=== PATIENT | female | born 1955 | race African-American/Black ===

== ENCOUNTER 2017-01-16 14:00 | Emergency (ER) | payer OTHER ==
[~2017-01-16 14:00] MED LIST: AMARYL4 MG PO; ATENOLOL25 MG PO; CATAPRES 0.2MG0.2 MG TOP; NEURONTIN300 MG PO; NEURONTIN400 MG PO; NORVASC5 MG PO; PYRIDIUM100 MG PO; VENTOLIN HFA IN18 GM INH; ZESTRIL40 MG PO
[2017-01-16 16:06] LABS: BASOPHIL 0.3 % (0-2); EOSINOPHIL 2.3 % (0-5); HCT 35.4 % (37.0-47.0); HGB 11.5 g/dl (12.5-16.0); LYMPHOCYTE 43.6 % (15-48); MCH 32.1 pg (25.0-31.0); MCHC 32.5 g/dL (32.0-36.0); MCV 98.9 fL (78.0-100.0); MONOCYTE 7.6 % (0-12); MPV 8.5 fL (6.0-9.5); NEUTROPHIL 46.2 % (41-80); PLT 278 K/uL (150-400); RBC 3.58 M/uL (4.20-5.40); RDW 13.9 % (11.5-14.0); WBC 6.2 K/uL (4.0-10.5)
[2017-01-16 16:30] LABS: ALBUMIN 4.2 g/dL (3.4-4.8); BILIRUBIN - TOTAL 0.3 mg/dL (0.1-1.0); CREATININE 0.5 mg/dL (0.5-1.0); GLOBULIN (CALCULATION) 2.4 g/dL (2.2-4.2); POTASSIUM 3.5 mmol/L (3.5-5.1); TOTAL PROTEIN 6.6 g/dL (6.4-8.3)
== END 2017-01-16 19:20 | disposition home or self-care (01) ==
LOC: FER 14:00
PROVIDERS: Emergency Medicine
DX: I10 Essential (primary) hypertension (principal); Z88.6 Allergy status to analgesic agent; Z88.8 Allergy status to other drugs, medicaments and biological substances; Z79.899 Other long term (current) drug therapy; Z86.73 Personal history of transient ischemic attack (TIA), and cerebral infarction without residual deficits
CPT/HCPCS: 36415; 71010; 80053; 84484; 85025; 93005

== ENCOUNTER 2017-04-07 13:12 | Emergency (ER) | payer OTHER ==
[2017-04-07 13:58] LABS: BILIRUBIN 1+ mg/dL (NEGATIVE); BLOOD NEGATIVE Ery/uL (NEGATIVE); CLARITY CLEAR (CLEAR); COLOR YELLOW (YELLOW); GLUCOSE (U) NORMAL (NORMAL); KETONE (U) TRACE mg/dL (NEGATIVE); LEUKOCYTES NEGATIVE Leu/uL (NEGATIVE); NITRITE NEGATIVE (NEGATIVE); PROTEIN TRACE (LOW) mg/dL (NEGATIVE); SPECIFIC GRAVITY 1.025 (1.001-1.030); pH 5.5 (5.0-9.0)
[2017-04-07 14:09] LABS: AMPHETAMINES NEGATIVE (NEGATIVE); BARBITURATES NEGATIVE (NEGATIVE); BENZODIAZEPINES POSITIVE (NEGATIVE); COCAINE POSITIVE (NEGATIVE); MARIJUANA (THC) POSITIVE (NEGATIVE); METHADONE NEGATIVE (NEGATIVE); TRICYCLIC ANTIDEPRESSANT NEGATIVE (NEGATIVE)
[2017-04-07 14:11] LABS: BASOPHIL 0.3 % (0-2); EOSINOPHIL 2.5 % (0-5); HCT 35.7 % (37.0-47.0); HGB 11.9 g/dl (12.5-16.0); LYMPHOCYTE 49.9 % (15-48); MCH 32.3 pg (25.0-31.0); MCHC 33.3 g/dL (32.0-36.0); MONOCYTE 7.2 % (0-12); MPV 9.1 fL (6.0-9.5); NEUTROPHIL 40.1 % (41-80); PLT 232 K/uL (150-400); RBC 3.68 M/uL (4.20-5.40); RDW 13.9 % (11.5-14.0); WBC 6.8 K/uL (4.0-10.5)
[2017-04-07 14:27] LABS: ALBUMIN 3.9 g/dL (3.4-4.8); BILIRUBIN - TOTAL 0.4 mg/dL (0.1-1.0); CREATININE 0.7 mg/dL (0.5-1.0); GLOBULIN (CALCULATION) 2.9 g/dL (2.2-4.2); POTASSIUM 3.8 mmol/L (3.5-5.1); TOTAL PROTEIN 6.8 g/dL (6.4-8.3)
== END 2017-04-07 14:54 | disposition home or self-care (01) ==
LOC: FER 13:12
PROVIDERS: Nurse Practitioner
DX: R10.9 Unspecified abdominal pain (principal); G89.29 Other chronic pain; M54.9 Dorsalgia, unspecified; R11.0 Nausea; I10 Essential (primary) hypertension; J44.9 Chronic obstructive pulmonary disease, unspecified; Z87.19 Personal history of other diseases of the digestive system; Z88.5 Allergy status to narcotic agent; Z88.6 Allergy status to analgesic agent; Z88.8 Allergy status to other drugs, medicaments and biological substances; Z79.84 Long term (current) use of oral hypoglycemic drugs; Z79.51 Long term (current) use of inhaled steroids; Z79.899 Other long term (current) drug therapy; Z90.49 Acquired absence of other specified parts of digestive tract
CPT/HCPCS: 36415; 80053; 80305; 81003; 82150; 83690; 85025

== ENCOUNTER 2017-04-12 09:53 | Emergency (ER) | payer OTHER ==
[2017-04-12 10:55] LABS: BILIRUBIN NEGATIVE (NEGATIVE); BLOOD NEGATIVE Ery/uL (NEGATIVE); CLARITY CLEAR (CLEAR); COLOR YELLOW (YELLOW); GLUCOSE (U) NORMAL (NORMAL); KETONE (U) NEGATIVE (NEGATIVE); LEUKOCYTES NEGATIVE Leu/uL (NEGATIVE); NITRITE NEGATIVE (NEGATIVE); PROTEIN NEGATIVE (NEGATIVE); SPECIFIC GRAVITY <=1.005 (1.001-1.030); UROBILINOGEN 0.2 mg/dL (0.2-1.0); pH 5.5 (5.0-9.0)
[2017-04-12 11:18] LABS: AMPHETAMINES NEGATIVE (NEGATIVE); BARBITURATES NEGATIVE (NEGATIVE); BENZODIAZEPINES NEGATIVE (NEGATIVE); COCAINE NEGATIVE (NEGATIVE); MARIJUANA (THC) NEGATIVE (NEGATIVE); METHADONE NEGATIVE (NEGATIVE); TRICYCLIC ANTIDEPRESSANT NEGATIVE (NEGATIVE)
== END 2017-04-12 11:29 | disposition home or self-care (01) ==
LOC: FER 09:53
PROVIDERS: Emergency Medicine
DX: R07.89 Other chest pain (principal); G89.29 Other chronic pain; M54.5 Low back pain; R11.0 Nausea; I45.81 Long QT syndrome; E11.9 Type 2 diabetes mellitus without complications; I10 Essential (primary) hypertension; Z88.5 Allergy status to narcotic agent; Z88.6 Allergy status to analgesic agent; Z88.8 Allergy status to other drugs, medicaments and biological substances
CPT/HCPCS: 80305; 81003; 93005

== ENCOUNTER 2017-04-24 15:52 | Emergency (ER) | payer OTHER ==
[2017-04-24 18:11] LABS: BILIRUBIN NEGATIVE (NEGATIVE); BLOOD NEGATIVE Ery/uL (NEGATIVE); CLARITY CLEAR (CLEAR); COLOR YELLOW (YELLOW); GLUCOSE (U) NORMAL (NORMAL); KETONE (U) NEGATIVE (NEGATIVE); LEUKOCYTES NEGATIVE Leu/uL (NEGATIVE); NITRITE NEGATIVE (NEGATIVE); PROTEIN NEGATIVE (NEGATIVE); SPECIFIC GRAVITY 1.025 (1.001-1.030); UROBILINOGEN 0.2 mg/dL (0.2-1.0); pH 5.5 (5.0-9.0)
[2017-04-24 19:27] LABS: BASOPHIL 0.1 % (0-2); EOSINOPHIL 1.8 % (0-5); HCT 34.6 % (37.0-47.0); HGB 11.6 g/dl (12.5-16.0); LYMPHOCYTE 51.8 % (15-48); MCH 32.5 pg (25.0-31.0); MCHC 33.5 g/dL (32.0-36.0); MCV 96.9 fL (78.0-100.0); MONOCYTE 7.2 % (0-12); MPV 8.9 fL (6.0-9.5); NEUTROPHIL 39.1 % (41-80); PLT 237 K/uL (150-400); RBC 3.57 M/uL (4.20-5.40); RDW 13.6 % (11.5-14.0); WBC 6.8 K/uL (4.0-10.5)
[2017-04-24 19:37] LABS: ALBUMIN 3.7 g/dL (3.4-4.8); BILIRUBIN - TOTAL 0.2 mg/dL (0.1-1.0); CREATININE 0.5 mg/dL (0.5-1.0); GLOBULIN (CALCULATION) 2.9 g/dL (2.2-4.2); POTASSIUM 3.5 mmol/L (3.5-5.1); TOTAL PROTEIN 6.6 g/dL (6.4-8.3)
[2017-04-24 20:36] LABS: BACTERIA 1+
== END 2017-04-24 20:52 | disposition home or self-care (01) ==
LOC: FER 15:52
PROVIDERS: Nurse Practitioner Family
DX: R30.0 Dysuria (principal); I12.9 Hypertensive chronic kidney disease with stage 1 through stage 4 chronic kidney disease, or unspecified chronic kidney disease; E11.22 Type 2 diabetes mellitus with diabetic chronic kidney disease; N18.9 Chronic kidney disease, unspecified; Z88.5 Allergy status to narcotic agent; Z88.6 Allergy status to analgesic agent; Z88.8 Allergy status to other drugs, medicaments and biological substances
CPT/HCPCS: 36415; 80053; 81001; 85025; J2765

== ENCOUNTER 2017-07-28 14:00 | Emergency (ER) | payer OTHER ==
[2017-07-28 14:55] LABS: BASOPHIL 0.1 % (0-2); EOSINOPHIL 0.5 % (0-7); HCT 35.8 % (37.0-47.0); HGB 11.8 g/dl (12.5-16.0); LYMPHOCYTE 51.4 % (15-48); MCH 33.1 pg (25.0-31.0); MCV 100.6 fL (78.0-100.0); MONOCYTE 7.6 % (0-12); MPV 9.2 fL (6.0-9.5); NEUTROPHIL 40.4 % (41-80); PLT 224 K/uL (150-400); RBC 3.56 M/uL (4.20-5.40); RDW 13.5 % (11.5-14.0); WBC 9.2 K/uL (4.0-10.5)
[2017-07-28 15:17] LABS: ALBUMIN 3.5 g/dL (3.4-4.8); BILIRUBIN - TOTAL 0.3 mg/dL (0.1-1.0); CREATININE 0.5 mg/dL (0.5-1.0); GLOBULIN (CALCULATION) 3.1 g/dL (2.2-4.2); POTASSIUM 3.1 mmol/L (3.5-5.1); TOTAL PROTEIN 6.6 g/dL (6.4-8.3)
[2017-07-28 16:38] LABS: BILIRUBIN NEGATIVE (NEGATIVE); BLOOD NEGATIVE Ery/uL (NEGATIVE); CLARITY CLEAR (CLEAR); COLOR YELLOW (YELLOW); GLUCOSE (U) 1+ mg/dL (NORMAL); KETONE (U) NEGATIVE (NEGATIVE); LEUKOCYTES NEGATIVE Leu/uL (NEGATIVE); NITRITE NEGATIVE (NEGATIVE); PROTEIN NEGATIVE (NEGATIVE)
== END 2017-07-28 17:19 | disposition home or self-care (01) ==
LOC: FER 14:00
PROVIDERS: Internal Medicine; Nurse Practitioner
DX: R10.9 Unspecified abdominal pain (principal); R10.817 Generalized abdominal tenderness; G89.29 Other chronic pain; E87.6 Hypokalemia; E11.9 Type 2 diabetes mellitus without complications; I10 Essential (primary) hypertension; Z79.899 Other long term (current) drug therapy
CPT/HCPCS: 36415; 80053; 81003; 83690; 85025; 93005

== ENCOUNTER 2020-12-11 12:15 | Emergency (ER) | payer SELFPAY ==
[~2020-12-11 12:15] MED LIST changes: +ASPIRIN PO; +ATARAX25 MG PO; +BENTYL10 MG PO; +CALCIUM ANTACI200 MG PO; +CATAPRES-T0.1 MG/24 TOP; +CHILDREN'S ASPI81 MG PO; +CIPRO500 MG PO; +CLONIDINE1 EACH TD; +COLACE100 MG PO; +COREG 3.125M3.125 MG PO; +COREG 6.25MG6.25 MG PO; +FEOSOL325 MG PO; +FUROSEMIDE 40MG40 MG PO; +JANUVIA25 MG PO; +K-DUR20 MEQ PO; +KEFLEX250 MG PO; +LEXAPRO20 MG PO; +LIDOCAINE 5% P1 EACH TOP; +MAG-OXIDE 400M400 MG PO; +MICON-GUARD 2% TOP; +NORCO 5-325 TA1 EACH PO; +PERCOCET 10-321 EACH PO; +PERCOCET 5-3251 EACH PO; +PHENERGAN12.5 M1 PO; +PHENERGAN25 M1 PO; +POTASSIUM CHLO10 ME1 PO; +POTASSIUM CHLO20 ME1 PO; +PROMETHEGA12.5 MG/SU PR; +PYRIDIUM200 MG PO; +QUETIAPINE FUMA50 MG PO; +REGLAN10 MG PO; +REMOVE; +REMOVE EXT; +VOLTAREN **OUT75 MG PO; +WELLBUTRIN XL150 MG PO
[2020-12-11 13:12] LABS: BILIRUBIN NEGATIVE (NEGATIVE); BLOOD NEGATIVE Ery/uL (NEGATIVE); CLARITY CLEAR (CLEAR); COLOR YELLOW (YELLOW); GLUCOSE (U) NORMAL (NORMAL); LEUKOCYTES NEGATIVE Leu/uL (NEGATIVE); NITRITE NEGATIVE (NEGATIVE); PROTEIN NEGATIVE (NEGATIVE); SPECIFIC GRAVITY >=1.030 (1.001-1.030); UROBILINOGEN 0.2 mg/dL (0.2-1.0)
[2020-12-11 13:44] LABS: BASOPHIL 0.4 % (0-2); EOSINOPHIL 3.6 % (0-7); HCT 32.2 % (37.0-47.0); HGB 10.2 g/dl (12.5-16.0); LYMPHOCYTE 55.5 % (15-48); MCH 33.6 pg (25.0-31.0); MCHC 31.7 g/dL (32.0-36.0); MCV 105.9 fL (78.0-100.0); MONOCYTE 7.5 % (0-12); NEUTROPHIL 32.8 % (41-80); NRBC 0; PLT 217 K/uL (150-400); RBC 3.04 M/uL (4.20-5.40); RDW 13.6 % (11.5-14.0); WBC 5.6 K/uL (4.0-10.5)
[2020-12-11 14:01] LABS: ALBUMIN 3.1 g/dL (3.4-5.0); BILIRUBIN - TOTAL 0.3 mg/dL (0.2-1.0); BUN/CREAT RATIO (CALC) 21.4 RATIO; CREATININE 0.42 mg/dL (0.51-0.95); GLOBULIN (CALCULATION) 3.7 g/dL; POTASSIUM 3.4 mmol/L (3.5-5.1); TOTAL PROTEIN 6.8 g/dL (6.4-8.2)
== END 2020-12-11 15:04 | disposition home or self-care (01) ==
LOC: FER 12:15
PROVIDERS: Emergency Medicine
DX: K29.70 Gastritis, unspecified, without bleeding (principal); M54.5 Low back pain; R91.8 Other nonspecific abnormal finding of lung field; E11.9 Type 2 diabetes mellitus without complications; J44.9 Chronic obstructive pulmonary disease, unspecified; Z90.49 Acquired absence of other specified parts of digestive tract; Z88.5 Allergy status to narcotic agent; Z88.6 Allergy status to analgesic agent; Z88.8 Allergy status to other drugs, medicaments and biological substances; Z87.19 Personal history of other diseases of the digestive system; Z86.73 Personal history of transient ischemic attack (TIA), and cerebral infarction without residual deficits
CPT/HCPCS: 36415; 74022; 80053; 81003; 83690; 85025; 96372; J1642; J2550

== ENCOUNTER 2020-12-20 16:47 | Emergency (ER) | payer OTHER ==
[2020-12-20 19:15] LABS: BILIRUBIN NEGATIVE (NEGATIVE); BLOOD NEGATIVE Ery/uL (NEGATIVE); CLARITY CLEAR (CLEAR); COLOR YELLOW (YELLOW); GLUCOSE (U) NORMAL (NORMAL); LEUKOCYTES NEGATIVE Leu/uL (NEGATIVE); NITRITE NEGATIVE (NEGATIVE); PROTEIN NEGATIVE (NEGATIVE); UROBILINOGEN 0.2 mg/dL (0.2-1.0); pH 5.5 (5.0-9.0)
[2020-12-20 19:30] LABS: BASOPHIL 0.5 % (0-2); EOSINOPHIL 2.3 % (0-7); HCT 34.1 % (37.0-47.0); HGB 11.2 g/dl (12.5-16.0); LYMPHOCYTE 56.9 % (15-48); MCH 33.8 pg (25.0-31.0); MCHC 32.8 g/dL (32.0-36.0); MONOCYTE 6.1 % (0-12); MPV 9.2 fL (6.0-9.5); NEUTROPHIL 33.9 % (41-80); NRBC 0; PLT 250 K/uL (150-400); RBC 3.31 M/uL (4.20-5.40); RDW 12.7 % (11.5-14.0); WBC 6.2 K/uL (4.0-10.5)
[2020-12-20 19:52] LABS: ALBUMIN 3.3 g/dL (3.4-5.0); BILIRUBIN - TOTAL 0.4 mg/dL (0.2-1.0); BUN/CREAT RATIO (CALC) 22.4 RATIO; CREATININE 0.49 mg/dL (0.51-0.95); GLOBULIN (CALCULATION) 4.1 g/dL; POTASSIUM 3.2 mmol/L (3.5-5.1); TOTAL PROTEIN 7.4 g/dL (6.4-8.2)
[2020-12-20 19:56] LABS: LACTIC ACID 0.7 mmol/L (0.4-1.9)
[2020-12-20] MEDS ORDERED: CARAFATE1 GM PO (20:47)
== END 2020-12-20 21:04 | disposition home or self-care (01) ==
LOC: FER 16:47
PROVIDERS: Emergency Medicine
DX: R10.84 Generalized abdominal pain (principal); R11.2 Nausea with vomiting, unspecified; R19.7 Diarrhea, unspecified; M54.9 Dorsalgia, unspecified; I10 Essential (primary) hypertension; J44.9 Chronic obstructive pulmonary disease, unspecified; Z98.890 Other specified postprocedural states; Z88.5 Allergy status to narcotic agent; Z88.6 Allergy status to analgesic agent; Z88.8 Allergy status to other drugs, medicaments and biological substances
CPT/HCPCS: 36415; 74022; 80053; 81003; 83605; 83690; 84145; 85025; J1170; J2550

== ENCOUNTER 2020-12-27 15:47 | Emergency (ER) | payer OTHER ==
[~2020-12-27 15:47] MED LIST changes: +CARAFATE1 GM PO
[2020-12-27 16:38] LABS: BASOPHIL 0.3 % (0-2); EOSINOPHIL 1.3 % (0-7); HCT 35.2 % (37.0-47.0); HGB 11.7 g/dl (12.5-16.0); LYMPHOCYTE 53.6 % (15-48); MCH 34.1 pg (25.0-31.0); MCHC 33.2 g/dL (32.0-36.0); MCV 102.6 fL (78.0-100.0); MONOCYTE 5.4 % (0-12); MPV 8.9 fL (6.0-9.5); NEUTROPHIL 39.4 % (41-80); NRBC 0; PLT 247 K/uL (150-400); RBC 3.43 M/uL (4.20-5.40); WBC 6.3 K/uL (4.0-10.5)
[2020-12-27 16:55] LABS: CREATININE 0.5 mg/dL (0.51-0.95); POTASSIUM 2.9 mmol/L (3.5-5.1)
== END 2020-12-27 18:43 | disposition home or self-care (01) ==
LOC: FER 15:47
PROVIDERS: Nurse Practitioner Family
DX: R07.89 Other chest pain (principal); E87.6 Hypokalemia; I10 Essential (primary) hypertension; E11.9 Type 2 diabetes mellitus without complications; I25.10 Atherosclerotic heart disease of native coronary artery without angina pectoris; Z90.49 Acquired absence of other specified parts of digestive tract; Z88.5 Allergy status to narcotic agent; Z88.6 Allergy status to analgesic agent
CPT/HCPCS: 36415; 80048; 84484; 85025; 93005; J1642

== ENCOUNTER 2021-01-07 17:27 | Emergency (ER) | payer OTHER ==
[2021-01-07 20:32] LABS: BILIRUBIN NEGATIVE (NEGATIVE); BLOOD NEGATIVE Ery/uL (NEGATIVE); CLARITY HAZY (CLEAR); COLOR YELLOW (YELLOW); GLUCOSE (U) NORMAL (NORMAL); LEUKOCYTES 1+ Leu/uL (NEGATIVE); NITRITE NEGATIVE (NEGATIVE); PROTEIN NEGATIVE (NEGATIVE); SPECIFIC GRAVITY >=1.030 (1.001-1.030); UROBILINOGEN 0.2 mg/dL (0.2-1.0); pH 5.5 (5.0-9.0)
[2021-01-07 20:39] LABS: BACTERIA TRACE; CALCIUM OXALATE CRYSTALS TRACE; URINARY RBC RARE
[2021-01-07 21:16] LABS: BASOPHIL 0.5 % (0-2); EOSINOPHIL 1.8 % (0-7); HCT 32.5 % (37.0-47.0); HGB 10.5 g/dl (12.5-16.0); MCHC 32.3 g/dL (32.0-36.0); MCV 105.2 fL (78.0-100.0); MONOCYTE 8.6 % (0-12); MPV 8.9 fL (6.0-9.5); NEUTROPHIL 44.9 % (41-80); NRBC 0; PLT 205 K/uL (150-400); RBC 3.09 M/uL (4.20-5.40); RDW 13.1 % (11.5-14.0); WBC 6.5 K/uL (4.0-10.5)
[2021-01-07 21:44] LABS: ALBUMIN 3.3 g/dL (3.4-5.0); BILIRUBIN - TOTAL 0.4 mg/dL (0.2-1.0); BUN/CREAT RATIO (CALC) 25.7 RATIO; CREATININE 0.74 mg/dL (0.51-0.95); GLOBULIN (CALCULATION) 3.2 g/dL; POTASSIUM 3.4 mmol/L (3.5-5.1); TOTAL PROTEIN 6.5 g/dL (6.4-8.2)
[2021-01-07] MEDS ORDERED: MACROBID100 MG PO (22:01)
[2021-01-07] MEDS ORDERED: CYCLOBENZAPRINE10 MG PO (22:01)
== END 2021-01-07 22:31 | disposition home or self-care (01) ==
LOC: FER 17:27
PROVIDERS: Physician Assistant
DX: N39.0 Urinary tract infection, site not specified (principal); G89.29 Other chronic pain; D64.9 Anemia, unspecified; E11.9 Type 2 diabetes mellitus without complications; I25.10 Atherosclerotic heart disease of native coronary artery without angina pectoris; I10 Essential (primary) hypertension; Z90.49 Acquired absence of other specified parts of digestive tract; Z98.890 Other specified postprocedural states; Z88.6 Allergy status to analgesic agent; Z88.8 Allergy status to other drugs, medicaments and biological substances; Z88.5 Allergy status to narcotic agent
CPT/HCPCS: 36415; 72110; 80053; 81001; 85025; J1170; J1642

== ENCOUNTER 2021-01-20 15:02 | Emergency (ER) | payer OTHER ==
[~2021-01-20 15:02] MED LIST changes: +CYCLOBENZAPRINE10 MG PO; +MACROBID100 MG PO
[2021-01-20 16:38] LABS: BASOPHIL 0.5 % (0-2); EOSINOPHIL 2.7 % (0-7); HCT 32.6 % (37.0-47.0); HGB 10.7 g/dl (12.5-16.0); LYMPHOCYTE 45.5 % (15-48); MCH 33.8 pg (25.0-31.0); MCHC 32.8 g/dL (32.0-36.0); MCV 102.8 fL (78.0-100.0); MONOCYTE 6.8 % (0-12); MPV 9.2 fL (6.0-9.5); NEUTROPHIL 44.2 % (41-80); NRBC 0; PLT 224 K/uL (150-400); RBC 3.17 M/uL (4.20-5.40); RDW 12.5 % (11.5-14.0); WBC 6.3 K/uL (4.0-10.5)
[2021-01-20 17:01] LABS: ALBUMIN 3.1 g/dL (3.4-5.0); BILIRUBIN - TOTAL 0.3 mg/dL (0.2-1.0); BUN/CREAT RATIO (CALC) 29.6 RATIO; CREATININE 0.54 mg/dL (0.51-0.95); GLOBULIN (CALCULATION) 3.6 g/dL; POTASSIUM 3.1 mmol/L (3.5-5.1); TOTAL PROTEIN 6.7 g/dL (6.4-8.2)
[2021-01-20 17:50] LABS: BILIRUBIN NEGATIVE (NEGATIVE); BLOOD NEGATIVE Ery/uL (NEGATIVE); CLARITY CLEAR (CLEAR); COLOR YELLOW (YELLOW); GLUCOSE (U) NORMAL (NORMAL); LEUKOCYTES NEGATIVE Leu/uL (NEGATIVE); NITRITE NEGATIVE (NEGATIVE); PROTEIN NEGATIVE (NEGATIVE); UROBILINOGEN 0.2 mg/dL (0.2-1.0)
[2021-01-20] MEDS ORDERED: PHENERGAN25 M1 PO (17:58)
== END 2021-01-20 18:37 | disposition home or self-care (01) ==
LOC: FER 15:02
PROVIDERS: Emergency Medicine
DX: R10.31 Right lower quadrant pain (principal); R10.32 Left lower quadrant pain; G89.29 Other chronic pain; R19.7 Diarrhea, unspecified; R11.2 Nausea with vomiting, unspecified; E11.9 Type 2 diabetes mellitus without complications; I10 Essential (primary) hypertension; J44.9 Chronic obstructive pulmonary disease, unspecified; Z87.19 Personal history of other diseases of the digestive system; Z88.5 Allergy status to narcotic agent; Z88.6 Allergy status to analgesic agent; Z88.8 Allergy status to other drugs, medicaments and biological substances; Z79.84 Long term (current) use of oral hypoglycemic drugs; Z79.899 Other long term (current) drug therapy
CPT/HCPCS: 36415; 80053; 81003; 82150; 83690; 85025; J1170; J1642; J2270; J2550; J7030

== ENCOUNTER 2021-01-23 17:20 | Emergency (ER) | payer OTHER ==
[2021-01-23 18:23] LABS: BASOPHIL 0.3 % (0-2); HCT 32.8 % (37.0-47.0); HGB 10.9 g/dl (12.5-16.0); LYMPHOCYTE 46.3 % (15-48); MCH 33.4 pg (25.0-31.0); MCHC 33.2 g/dL (32.0-36.0); MCV 100.6 fL (78.0-100.0); MPV 8.7 fL (6.0-9.5); NEUTROPHIL 44.4 % (41-80); NRBC 0; PLT 231 K/uL (150-400); RBC 3.26 M/uL (4.20-5.40); RDW 12.3 % (11.5-14.0); WBC 6.1 K/uL (4.0-10.5)
[2021-01-23 18:39] LABS: BILIRUBIN - TOTAL 0.3 mg/dL (0.2-1.0); BUN/CREAT RATIO (CALC) 30.2 RATIO; CREATININE 0.43 mg/dL (0.51-0.95); POTASSIUM 2.9 mmol/L (3.5-5.1)
[2021-01-23 18:52] LABS: LACTIC ACID 0.8 mmol/L (0.4-1.9)
[2021-01-23 19:02] LABS: BILIRUBIN NEGATIVE (NEGATIVE); BLOOD 1+ Ery/uL (NEGATIVE); COLOR YELLOW (YELLOW); GLUCOSE (U) NORMAL (NORMAL); LEUKOCYTES 3+ Leu/uL (NEGATIVE); NITRITE NEGATIVE (NEGATIVE); PROTEIN NEGATIVE (NEGATIVE); UROBILINOGEN 0.2 mg/dL (0.2-1.0); pH 6.5 (5.0-9.0)
[2021-01-23 19:04] LABS: CLARITY CLOUDY (CLEAR)
[2021-01-23 19:08] LABS: BACTERIA 4+; URINARY WBC TNTC
[2021-01-23] MEDS ORDERED: K-DUR20 MEQ PO (21:25)
[2021-01-23] MEDS ORDERED: PROMETHEGA12.5 MG/SU PR (21:25)
[2021-01-23] MEDS ORDERED: CIPRO500 MG PO (21:25)
== END 2021-01-23 21:55 | disposition home or self-care (01) ==
LOC: FER 17:20
PROVIDERS: Nurse Practitioner Family
DX: N39.0 Urinary tract infection, site not specified (principal); E87.6 Hypokalemia; R19.7 Diarrhea, unspecified; E11.9 Type 2 diabetes mellitus without complications; I10 Essential (primary) hypertension; Z87.19 Personal history of other diseases of the digestive system; Z86.73 Personal history of transient ischemic attack (TIA), and cerebral infarction without residual deficits; Z90.49 Acquired absence of other specified parts of digestive tract; Z90.710 Acquired absence of both cervix and uterus; Z98.890 Other specified postprocedural states; Z88.5 Allergy status to narcotic agent; Z88.6 Allergy status to analgesic agent; Z88.8 Allergy status to other drugs, medicaments and biological substances
CPT/HCPCS: 36415; 80053; 81001; 82150; 83605; 83690; 85025; 87076; 87088; 87186; J0696; J1170; J1642; J2550; J3480; J7030; Q9967

== ENCOUNTER 2021-01-27 14:10 | Inpatient (IN) | payer MEDICARE, OTHER ==
[~2021-01-27] VITALS: Ht 154.9 cm; Wt 72.2 kg
[2021-01-27 16:14] LABS: BASOPHIL 0.3 % (0-2); EOSINOPHIL 1.7 % (0-7); HCT 35.9 % (37.0-47.0); HGB 11.1 g/dl (12.5-16.0); LYMPHOCYTE 50.4 % (15-48); MCH 32.8 pg (25.0-31.0); MCHC 30.9 g/dL (32.0-36.0); MCV 106.2 fL (78.0-100.0); MONOCYTE 8.3 % (0-12); MPV 9.5 fL (6.0-9.5); NEUTROPHIL 39.3 % (41-80); NRBC 0; PLT 217 K/uL (150-400); RBC 3.38 M/uL (4.20-5.40); RDW 12.8 % (11.5-14.0)
[2021-01-27 17:14] LABS: BILIRUBIN NEGATIVE (NEGATIVE); BLOOD NEGATIVE Ery/uL (NEGATIVE); CLARITY CLEAR (CLEAR); COLOR YELLOW (YELLOW); GLUCOSE (U) NORMAL (NORMAL); LEUKOCYTES NEGATIVE Leu/uL (NEGATIVE); NITRITE NEGATIVE (NEGATIVE); PROTEIN NEGATIVE (NEGATIVE); SPECIFIC GRAVITY 1.015 (1.001-1.030); UROBILINOGEN 0.2 mg/dL (0.2-1.0)
[2021-01-27 18:14] LABS: BILIRUBIN - TOTAL 0.4 mg/dL (0.2-1.0); BUN/CREAT RATIO (CALC) 28.9 RATIO; CREATININE 0.38 mg/dL (0.51-0.95); POTASSIUM 2.8 mmol/L (3.5-5.1)
[2021-01-27 18:45] LABS: MAGNESIUM 1.1 mg/dL (1.8-2.4); PHOSPHORUS 2.9 mg/dL (2.6-4.7)
[2021-01-27] MEDS ORDERED: VENTOLIN HFA IN18 GM INH (22:04)
[2021-01-27] MEDS ORDERED: NORVASC5 MG PO (22:04)
[2021-01-27] MEDS ORDERED: CATAPRES-TTS 21 EACH ID (22:08)
[2021-01-27] MEDS ORDERED: FLEXERIL5 MG PO (22:09)
[2021-01-27] MEDS ORDERED: FEOSOL325 MG PO (22:10)
[2021-01-27] MEDS ORDERED: LEXAPRO20 MG PO (22:10)
[2021-01-27] MEDS ORDERED: GABAPENTIN300 MG PO (22:11)
[2021-01-27] MEDS ORDERED: ATARAX25 MG PO ×3 (22:12→22:18)
[2021-01-27] MEDS ORDERED: SEROQUEL 25MG T25 MG PO (22:13)
[2021-01-27] MEDS ORDERED: K-DUR20 MEQ PO (22:14)
[2021-01-27] MEDS ORDERED: KEPPRA1000 MG PO (22:15)
[2021-01-27] MEDS ORDERED: NEURONTIN300 MG PO (22:17)
[2021-01-28 06:12] LABS: BASOPHIL 0.4 % (0-2); EOSINOPHIL 2.3 % (0-7); HCT 31.9 % (37.0-47.0); LYMPHOCYTE 45.3 % (15-48); MCH 33.4 pg (25.0-31.0); MCHC 31.3 g/dL (32.0-36.0); MCV 106.7 fL (78.0-100.0); MONOCYTE 6.8 % (0-12); MPV 9.2 fL (6.0-9.5); NEUTROPHIL 45.1 % (41-80); NRBC 0; PLT 220 K/uL (150-400); RBC 2.99 M/uL (4.20-5.40); RDW 12.8 % (11.5-14.0); WBC 7.5 K/uL (4.0-10.5)
[2021-01-28 06:30] LABS: BUN/CREAT RATIO (CALC) 20.8 RATIO; CREATININE 0.53 mg/dL (0.51-0.95); POTASSIUM 3.9 mmol/L (3.5-5.1)
[2021-01-28 06:31] LABS: MAGNESIUM 1.9 mg/dL (1.8-2.4)
--- NOTE | 2021-01-28 15:17 | NUR ---
MET WITH PT. SHE STATE THAT SHE RESIDES WITH HER SON, TRISHA. DURING THE TIME HER SON IS NOT HOME HER OTHER SON, CAITLIN, STAYS WITH HER. SHE STATES THAT HER SONS PROVIDE MEALS FOR HER. THEY TAKE HER TO THE DOCTOR AND RUN ERRANDS FOR HER. PT. STATES THAT HER JANUARY 01 OR . SHE STATES THAT SHE IS DOING "SO SO". SHE STATES THAT SHE HAS A GOOD FRIEND, MAX THAT SHE TALKS WITH AND SHE FEELS SUPPORTED BY THIS. SHE STATES THAT HER SONS HELP HER AND TAKE GOOD CARE OF HER. I ASKED HER IF SHE WANTED HH AND SHE STATED THAT SHE DID. SHE REQUESTED [facility]. I EXPLAINED THE AFFLIATION AND SHE ACKNOLEDGED THAT SHE UNDERSTOOD. SHE SIGNED THE CHOICE FORM FOR [facility]. REFERRAL FOR [facility] SENT THROUGH [facility].
--- NOTE | 2021-01-28 17:08 | NUR ---
PLEASE CALL [facility] UPON DISCHARGE. THANKS,
[2021-01-29 06:52] LABS: BASOPHIL 0.3 % (0-2); EOSINOPHIL 2.6 % (0-7); HGB 9.6 g/dl (12.5-16.0); LYMPHOCYTE 41.2 % (15-48); MCH 33.4 pg (25.0-31.0); MCV 104.5 fL (78.0-100.0); MONOCYTE 6.4 % (0-12); MPV 9.4 fL (6.0-9.5); NEUTROPHIL 49.3 % (41-80); NRBC 0; PLT 207 K/uL (150-400); RBC 2.87 M/uL (4.20-5.40); RDW 12.4 % (11.5-14.0); WBC 6.1 K/uL (4.0-10.5)
[2021-01-29 07:03] LABS: ALBUMIN 2.5 g/dL (3.4-5.0); BILIRUBIN - TOTAL 0.4 mg/dL (0.2-1.0); BUN/CREAT RATIO (CALC) 20.9 RATIO; CREATININE 0.43 mg/dL (0.51-0.95); GLOBULIN (CALCULATION) 3.4 g/dL; POTASSIUM 3.8 mmol/L (3.5-5.1); TOTAL PROTEIN 5.9 g/dL (6.4-8.2)
[2021-01-29 14:11] LABS: RETICULOCYTE COUNT 1.5 % (1.0-2.0)
[2021-01-29 14:20] LABS: IRON % SATURATION 29.5 %SAT (20-50)
[2021-01-29 15:03] LABS: FOLIC ACID (SERUM) 26.9 ng/mL (8.6-58.9)
[2021-01-30 06:18] LABS: BASOPHIL 0.2 % (0-2); EOSINOPHIL 3.3 % (0-7); HCT 27.2 % (37.0-47.0); HGB 8.8 g/dl (12.5-16.0); LYMPHOCYTE 39.4 % (15-48); MCH 33.2 pg (25.0-31.0); MCHC 32.4 g/dL (32.0-36.0); MCV 102.6 fL (78.0-100.0); MONOCYTE 7.6 % (0-12); MPV 9.1 fL (6.0-9.5); NEUTROPHIL 49.3 % (41-80); NRBC 0; PLT 208 K/uL (150-400); RBC 2.65 M/uL (4.20-5.40); RDW 12.4 % (11.5-14.0); WBC 5.8 K/uL (4.0-10.5)
[2021-01-30 06:47] LABS: BUN/CREAT RATIO (CALC) 13.3 RATIO; CREATININE 0.45 mg/dL (0.51-0.95); POTASSIUM 3.7 mmol/L (3.5-5.1)
[2021-01-30] MEDS ORDERED: PHENERGAN12.5 M1 PO (12:47)
[2021-01-30] MEDS ORDERED: OXY-IR 5MG5 MG PO (12:47)
[2021-01-30] MEDS ORDERED: PROMETHEGA12.5 MG/SU PR (12:58)
== END 2021-01-30 16:24 | disposition home health service (06) | DRG 439 ==
LOC: FER 14:10 → FMS 20:14
PROVIDERS: Emergency Medicine; Nurse Practitioner; Nurse Practitioner Family; ADMIT Internal Medicine
DX: K85.90 Acute pancreatitis without necrosis or infection, unspecified (principal); E44.1 Mild protein-calorie malnutrition; N30.00 Acute cystitis without hematuria; Z16.24 Resistance to multiple antibiotics; I82.409 Acute embolism and thrombosis of unspecified deep veins of unspecified lower extremity; E87.6 Hypokalemia; E83.42 Hypomagnesemia; E86.0 Dehydration; B96.20 Unspecified Escherichia coli [E. coli] as the cause of diseases classified elsewhere; Z20.822 Contact with and (suspected) exposure to COVID-19; E11.9 Type 2 diabetes mellitus without complications; I10 Essential (primary) hypertension; L29.9 Pruritus, unspecified; K21.9 Gastro-esophageal reflux disease without esophagitis; J44.9 Chronic obstructive pulmonary disease, unspecified; F41.1 Generalized anxiety disorder; F32.9 Major depressive disorder, single episode, unspecified; Z86.73 Personal history of transient ischemic attack (TIA), and cerebral infarction without residual deficits; Z90.710 Acquired absence of both cervix and uterus; Z90.49 Acquired absence of other specified parts of digestive tract; Z88.8 Allergy status to other drugs, medicaments and biological substances; Z98.41 Cataract extraction status, right eye; Z98.890 Other specified postprocedural states
CPT/HCPCS: 36415; 74022; 80048; 80053; 81003; 82270; 82607; 82746; 82962; 83540; 83550; 83690; 83735; 84100; 84484; 85025; 87045; 87046; 93005; J1170; J1200; J1335; J2060; J2550; J3475; J3480; J7030; J7120; U0002

== ENCOUNTER 2021-02-11 12:33 | Emergency (ER) | payer OTHER ==
[~2021-02-11 12:33] MED LIST changes: +CATAPRES-TTS 21 EACH ID; +FLEXERIL5 MG PO; +GABAPENTIN300 MG PO; +KEPPRA1000 MG PO; +OXY-IR 5MG5 MG PO; +SEROQUEL 25MG T25 MG PO
[2021-02-11 13:37] LABS: BASOPHIL 0.5 % (0-2); HCT 32.8 % (37.0-47.0); HGB 10.7 g/dl (12.5-16.0); LYMPHOCYTE 41.6 % (15-48); MCH 32.9 pg (25.0-31.0); MCHC 32.6 g/dL (32.0-36.0); MCV 100.9 fL (78.0-100.0); MONOCYTE 6.3 % (0-12); MPV 8.9 fL (6.0-9.5); NEUTROPHIL 49.4 % (41-80); NRBC 0; PLT 208 K/uL (150-400); RBC 3.25 M/uL (4.20-5.40); RDW 12.6 % (11.5-14.0); WBC 6.4 K/uL (4.0-10.5)
[2021-02-11 13:54] LABS: BUN/CREAT RATIO (CALC) 24.5 RATIO; CREATININE 0.49 mg/dL (0.51-0.95); MAGNESIUM 1.4 mg/dL (1.8-2.4); POTASSIUM 2.9 mmol/L (3.5-5.1)
[2021-02-11] MEDS ORDERED: PROMETHEGA12.5 MG/SU PR (15:54)
== END 2021-02-11 17:25 | disposition home or self-care (01) ==
LOC: FER 12:33
PROVIDERS: Nurse Practitioner Family
DX: R11.2 Nausea with vomiting, unspecified (principal); R10.9 Unspecified abdominal pain; R19.7 Diarrhea, unspecified; I10 Essential (primary) hypertension; E11.9 Type 2 diabetes mellitus without complications; Z86.73 Personal history of transient ischemic attack (TIA), and cerebral infarction without residual deficits; Z88.5 Allergy status to narcotic agent; Z88.6 Allergy status to analgesic agent; Z88.8 Allergy status to other drugs, medicaments and biological substances; Z87.19 Personal history of other diseases of the digestive system
CPT/HCPCS: 36415; 80048; 83735; 84484; 85025; 93005; J1170; J1642; J2550; J3475; J3480; J7030

== ENCOUNTER 2021-02-12 11:14 | Emergency (ER) | payer OTHER ==
[2021-02-12 15:17] LABS: BASOPHIL 0.2 % (0-2); EOSINOPHIL 2.2 % (0-7); HCT 31.8 % (37.0-47.0); HGB 10.5 g/dl (12.5-16.0); LYMPHOCYTE 51.6 % (15-48); MCH 33.5 pg (25.0-31.0); MCV 101.6 fL (78.0-100.0); MONOCYTE 6.5 % (0-12); MPV 9.8 fL (6.0-9.5); NEUTROPHIL 39.3 % (41-80); NRBC 0; PLT 223 K/uL (150-400); RBC 3.13 M/uL (4.20-5.40); RDW 12.7 % (11.5-14.0); WBC 5.9 K/uL (4.0-10.5)
[2021-02-12 15:27] LABS: BUN/CREAT RATIO (CALC) 24.4 RATIO; CREATININE 0.45 mg/dL (0.51-0.95); POTASSIUM 3.5 mmol/L (3.5-5.1)
== END 2021-02-12 19:30 | disposition home or self-care (01) ==
LOC: FER 11:14
PROVIDERS: Nurse Practitioner Family
DX: R11.10 Vomiting, unspecified (principal); I10 Essential (primary) hypertension; Z90.49 Acquired absence of other specified parts of digestive tract; Z88.5 Allergy status to narcotic agent; Z88.8 Allergy status to other drugs, medicaments and biological substances
CPT/HCPCS: 36415; 80048; 84484; 85025; J1642; J2550; J7030

== ENCOUNTER 2021-02-13 12:11 | Emergency (ER) | payer OTHER ==
[2021-02-13 12:56] LABS: BASOPHIL 0.6 % (0-2); EOSINOPHIL 2.9 % (0-7); HCT 30.5 % (37.0-47.0); HGB 10.1 g/dl (12.5-16.0); MCH 33.1 pg (25.0-31.0); MCHC 33.1 g/dL (32.0-36.0); MONOCYTE 6.5 % (0-12); MPV 9.3 fL (6.0-9.5); NRBC 0; PLT 205 K/uL (150-400); RBC 3.05 M/uL (4.20-5.40); RDW 12.2 % (11.5-14.0); WBC 4.8 K/uL (4.0-10.5)
[2021-02-13 13:14] LABS: ALBUMIN 2.7 g/dL (3.4-5.0); BILIRUBIN - TOTAL 0.3 mg/dL (0.2-1.0); BUN/CREAT RATIO (CALC) 16.3 RATIO; CREATININE 0.43 mg/dL (0.51-0.95); GLOBULIN (CALCULATION) 3.5 g/dL; POTASSIUM 3.2 mmol/L (3.5-5.1); TOTAL PROTEIN 6.2 g/dL (6.4-8.2)
[2021-02-13 13:59] LABS: BILIRUBIN NEGATIVE (NEGATIVE); BLOOD NEGATIVE Ery/uL (NEGATIVE); CLARITY CLEAR (CLEAR); COLOR YELLOW (YELLOW); GLUCOSE (U) NORMAL (NORMAL); LEUKOCYTES NEGATIVE Leu/uL (NEGATIVE); NITRITE NEGATIVE (NEGATIVE); PROTEIN NEGATIVE (NEGATIVE); pH 6.5 (5.0-9.0)
== END 2021-02-13 14:30 | disposition home or self-care (01) ==
LOC: FER 12:11
PROVIDERS: Emergency Medicine
DX: R07.89 Other chest pain (principal); R10.84 Generalized abdominal pain; R11.10 Vomiting, unspecified; R19.7 Diarrhea, unspecified; I44.7 Left bundle-branch block, unspecified
CPT/HCPCS: 36415; 71045; 80053; 81003; 84484; 85025; 93005; J2550

== ENCOUNTER 2021-02-18 10:33 | Emergency (ER) | payer OTHER ==
[2021-02-18 13:24] LABS: BASOPHIL 0.3 % (0-2); EOSINOPHIL 1.4 % (0-7); HCT 33.2 % (37.0-47.0); HGB 11.2 g/dl (12.5-16.0); LYMPHOCYTE 39.2 % (15-48); MCH 33.8 pg (25.0-31.0); MCHC 33.7 g/dL (32.0-36.0); MCV 100.3 fL (78.0-100.0); MONOCYTE 7.2 % (0-12); MPV 9.4 fL (6.0-9.5); NEUTROPHIL 51.8 % (41-80); NRBC 0; PLT 228 K/uL (150-400); RBC 3.31 M/uL (4.20-5.40); RDW 12.6 % (11.5-14.0); WBC 7.6 K/uL (4.0-10.5)
[2021-02-18 13:34] LABS: ALBUMIN 3.4 g/dL (3.4-5.0); BILIRUBIN - TOTAL 0.4 mg/dL (0.2-1.0); BUN/CREAT RATIO (CALC) 23.3 RATIO; CREATININE 0.73 mg/dL (0.51-0.95); GLOBULIN (CALCULATION) 4.1 g/dL; POTASSIUM 2.9 mmol/L (3.5-5.1); TOTAL PROTEIN 7.5 g/dL (6.4-8.2)
[2021-02-18 13:45] LABS: BILIRUBIN NEGATIVE (NEGATIVE); BLOOD 3+ Ery/uL (NEGATIVE); CLARITY CLEAR (CLEAR); COLOR YELLOW (YELLOW); GLUCOSE (U) NORMAL (NORMAL); LEUKOCYTES 2+ Leu/uL (NEGATIVE); NITRITE NEGATIVE (NEGATIVE); PROTEIN 2+ mg/dL (NEGATIVE); SPECIFIC GRAVITY 1.025 (1.001-1.030); UROBILINOGEN 0.2 mg/dL (0.2-1.0)
[2021-02-18 13:55] LABS: BACTERIA 3+; URINARY WBC TNTC
[2021-02-18] MEDS ORDERED: BACTRIM DS TAB1 EACH PO (14:06)
[2021-02-18] MEDS ORDERED: PEPCID AC20 MG PO (14:06)
== END 2021-02-18 14:55 | disposition home or self-care (01) ==
LOC: FER 10:33
PROVIDERS: Emergency Medicine
DX: N39.0 Urinary tract infection, site not specified (principal); E87.6 Hypokalemia; R19.7 Diarrhea, unspecified; E11.9 Type 2 diabetes mellitus without complications; I10 Essential (primary) hypertension; Z87.19 Personal history of other diseases of the digestive system; Z88.5 Allergy status to narcotic agent; Z88.8 Allergy status to other drugs, medicaments and biological substances
CPT/HCPCS: 36415; 80053; 81001; 83690; 85025; J1642; J7030

== ENCOUNTER 2021-02-27 12:46 | Emergency (ER) | payer OTHER ==
[~2021-02-27 12:46] MED LIST changes: +BACTRIM DS TAB1 EACH PO; +PEPCID AC20 MG PO
[2021-02-27 16:46] LABS: BASOPHIL 0.3 % (0-2); EOSINOPHIL 1.5 % (0-7); HCT 34.5 % (37.0-47.0); HGB 11.5 g/dl (12.5-16.0); LYMPHOCYTE 50.7 % (15-48); MCH 33.8 pg (25.0-31.0); MCHC 33.3 g/dL (32.0-36.0); MCV 101.5 fL (78.0-100.0); MONOCYTE 6.6 % (0-12); NEUTROPHIL 40.7 % (41-80); NRBC 0; PLT 280 K/uL (150-400); RDW 13.1 % (11.5-14.0); WBC 6.6 K/uL (4.0-10.5)
[2021-02-27 17:04] LABS: ALBUMIN 3.6 g/dL (3.4-5.0); BILIRUBIN - TOTAL 0.5 mg/dL (0.2-1.0); BUN/CREAT RATIO (CALC) 27.9 RATIO; CREATININE 0.43 mg/dL (0.51-0.95); TOTAL PROTEIN 7.6 g/dL (6.4-8.2)
== END 2021-02-27 18:50 | disposition home or self-care (01) ==
LOC: FER 12:46
PROVIDERS: Emergency Medicine
DX: R11.2 Nausea with vomiting, unspecified (principal); E86.0 Dehydration; R10.9 Unspecified abdominal pain; R07.9 Chest pain, unspecified; I44.7 Left bundle-branch block, unspecified; I11.0 Hypertensive heart disease with heart failure; I50.9 Heart failure, unspecified; J44.9 Chronic obstructive pulmonary disease, unspecified; Z87.19 Personal history of other diseases of the digestive system; E11.9 Type 2 diabetes mellitus without complications; Z90.49 Acquired absence of other specified parts of digestive tract
CPT/HCPCS: 36415; 71045; 80053; 83690; 84484; 85025; 93005; J1642

== ENCOUNTER 2021-03-07 17:52 | Emergency (ER) | payer OTHER ==
[2021-03-07 20:27] LABS: BILIRUBIN NEGATIVE (NEGATIVE); BLOOD NEGATIVE Ery/uL (NEGATIVE); CLARITY CLEAR (CLEAR); COLOR YELLOW (YELLOW); GLUCOSE (U) TRACE mg/dL (NORMAL); LEUKOCYTES NEGATIVE Leu/uL (NEGATIVE); NITRITE NEGATIVE (NEGATIVE); PROTEIN TRACE (LOW) mg/dL (NEGATIVE); UROBILINOGEN 0.2 mg/dL (0.2-1.0)
[2021-03-07 20:37] LABS: BACTERIA TRACE; SQUAMOUS EPITHELIAL CELLS 20-50
== END 2021-03-07 21:38 | disposition home or self-care (01) ==
LOC: FER 17:52
PROVIDERS: Nurse Practitioner Family
DX: S40.012A Contusion of left shoulder, initial encounter (principal); I10 Essential (primary) hypertension; J44.9 Chronic obstructive pulmonary disease, unspecified; Z86.73 Personal history of transient ischemic attack (TIA), and cerebral infarction without residual deficits; Z88.6 Allergy status to analgesic agent; Z88.8 Allergy status to other drugs, medicaments and biological substances; Z88.5 Allergy status to narcotic agent; W19.XXXA Unspecified fall, initial encounter; Y92.009 Unspecified place in unspecified non-institutional (private) residence as the place of occurrence of the external cause
CPT/HCPCS: 73030; 81001

== ENCOUNTER 2021-03-10 14:07 | Emergency (ER) | payer OTHER ==
[2021-03-10 16:03] LABS: BASOPHIL 0.5 % (0-2); EOSINOPHIL 0.6 % (0-7); HCT 30.2 % (37.0-47.0); LYMPHOCYTE 54.6 % (15-48); MCH 33.2 pg (25.0-31.0); MCHC 33.1 g/dL (32.0-36.0); MCV 100.3 fL (78.0-100.0); MONOCYTE 6.4 % (0-12); NEUTROPHIL 37.7 % (41-80); NRBC 0; PLT 209 K/uL (150-400); RBC 3.01 M/uL (4.20-5.40); RDW 13.3 % (11.5-14.0); WBC 6.4 K/uL (4.0-10.5)
[2021-03-10 16:18] LABS: BUN/CREAT RATIO (CALC) 35.7 RATIO; CREATININE 0.42 mg/dL (0.51-0.95); POTASSIUM 3.1 mmol/L (3.5-5.1)
[2021-03-10] MEDS ORDERED: PHENERGAN25 M1 PO (18:17)
== END 2021-03-10 18:32 | disposition home or self-care (01) ==
LOC: FER 14:07
PROVIDERS: Nurse Practitioner Family
DX: R10.9 Unspecified abdominal pain (principal); R11.2 Nausea with vomiting, unspecified; I10 Essential (primary) hypertension; J44.9 Chronic obstructive pulmonary disease, unspecified; Z90.49 Acquired absence of other specified parts of digestive tract; Z87.19 Personal history of other diseases of the digestive system
CPT/HCPCS: 36415; 80048; 83690; 85025; 99284

== ENCOUNTER 2021-03-23 17:45 | Emergency (ER) | payer OTHER ==
[2021-03-23 19:43] LABS: BASOPHIL 0.3 % (0-2); EOSINOPHIL 1.2 % (0-7); HCT 32.7 % (37.0-47.0); HGB 10.9 g/dl (12.5-16.0); LYMPHOCYTE 45.7 % (15-48); MCH 33.4 pg (25.0-31.0); MCHC 33.3 g/dL (32.0-36.0); MCV 100.3 fL (78.0-100.0); MONOCYTE 6.4 % (0-12); MPV 8.9 fL (6.0-9.5); NEUTROPHIL 46.2 % (41-80); NRBC 0; PLT 243 K/uL (150-400); RBC 3.26 M/uL (4.20-5.40); RDW 13.3 % (11.5-14.0); WBC 8.9 K/uL (4.0-10.5)
[2021-03-23 19:44] LABS: BILIRUBIN NEGATIVE (NEGATIVE); BLOOD NEGATIVE Ery/uL (NEGATIVE); CLARITY CLEAR (CLEAR); COLOR YELLOW (YELLOW); GLUCOSE (U) NORMAL (NORMAL); LEUKOCYTES NEGATIVE Leu/uL (NEGATIVE); NITRITE NEGATIVE (NEGATIVE); PROTEIN NEGATIVE (NEGATIVE); UROBILINOGEN 0.2 mg/dL (0.2-1.0)
[2021-03-23 20:06] LABS: ALBUMIN 3.4 g/dL (3.4-5.0); ALKALINE PHOSHATASE 94 U/L (46-116); ALT <6 U/L (14-59); AST 12 U/L (15-37); BILIRUBIN - TOTAL 0.4 mg/dL (0.2-1.0); BUN 9 mg/dL (7-18); BUN/CREAT RATIO (CALC) 19.1 RATIO; CHLORIDE 105 mmol/L (98-107); CO2 (BICARBONATE) 29 mmol/L (21-32); CREATININE 0.47 mg/dL (0.51-0.95); GLUCOSE 134 mg/dL (74-106); LIPASE 118 U/L (73-393); POTASSIUM 3.1 mmol/L (3.5-5.1); TOTAL PROTEIN 7.4 g/dL (6.4-8.2)
== END 2021-03-23 22:33 | disposition home or self-care (01) ==
LOC: FER 17:45
PROVIDERS: Emergency Medicine Emergency Medical Services
DX: E86.0 Dehydration (principal); E87.6 Hypokalemia; E11.9 Type 2 diabetes mellitus without complications; J44.9 Chronic obstructive pulmonary disease, unspecified; I10 Essential (primary) hypertension; Z98.890 Other specified postprocedural states; Z87.19 Personal history of other diseases of the digestive system; Z88.5 Allergy status to narcotic agent; Z88.8 Allergy status to other drugs, medicaments and biological substances; Z88.6 Allergy status to analgesic agent
CPT/HCPCS: 36415; 72072; 72100; 80053; 81003; 83690; 85025; J1170; J1642; J2550; J7030

== ENCOUNTER 2021-08-09 18:09 | Day surgery (SDCO) | payer MEDICARE, OTHER ==
[~2021-08-09] VITALS: Ht 154.9 cm; Wt 64.5 kg
[2021-08-09 18:43] LABS: BILIRUBIN NEGATIVE (NEGATIVE); BLOOD NEGATIVE Ery/uL (NEGATIVE); CLARITY CLEAR (CLEAR); COLOR YELLOW (YELLOW); GLUCOSE (U) NORMAL (NORMAL); LEUKOCYTES 2+ Leu/uL (NEGATIVE); NITRITE NEGATIVE (NEGATIVE); PROTEIN NEGATIVE (NEGATIVE); UROBILINOGEN 0.2 mg/dL (0.2-1.0); pH 5.5 (5.0-9.0)
[2021-08-09 18:50] LABS: BACTERIA 3+
[2021-08-09 19:19] LABS: BASOPHIL 0.4 % (0-2); EOSINOPHIL 2.8 % (0-7); HCT 29.9 % (37.0-47.0); HGB 9.3 g/dl (12.5-16.0); LYMPHOCYTE 44.7 % (15-48); MCH 30.7 pg (25.0-31.0); MCHC 31.1 g/dL (32.0-36.0); MCV 98.7 fL (78.0-100.0); MONOCYTE 7.7 % (0-12); MPV 9.7 fL (6.0-9.5); NRBC 0; PLT 237 K/uL (150-400); RBC 3.03 M/uL (4.20-5.40); RDW 13.3 % (11.5-14.0); WBC 4.7 K/uL (4.0-10.5)
[2021-08-09 19:30] LABS: BUN/CREAT RATIO (CALC) 30.1 RATIO; CREATININE 2.29 mg/dL (0.51-0.95); POTASSIUM 5.1 mmol/L (3.5-5.1)
[2021-08-10 05:05] LABS: BASOPHIL 0.3 % (0-2); EOSINOPHIL 0.5 % (0-7); HCT 23.5 % (37.0-47.0); HGB 7.4 g/dl (12.5-16.0); LYMPHOCYTE 19.7 % (15-48); MCHC 31.5 g/dL (32.0-36.0); MCV 98.3 fL (78.0-100.0); MONOCYTE 6.6 % (0-12); MPV 9.7 fL (6.0-9.5); NEUTROPHIL 72.5 % (41-80); NRBC 0; PLT 196 K/uL (150-400); RBC 2.39 M/uL (4.20-5.40); RDW 13.2 % (11.5-14.0); WBC 7.9 K/uL (4.0-10.5)
[2021-08-10 05:26] LABS: ALBUMIN 2.4 g/dL (3.4-5.0); BILIRUBIN - TOTAL 0.5 mg/dL (0.2-1.0); BUN/CREAT RATIO (CALC) 35.8 RATIO; CREATININE 1.65 mg/dL (0.51-0.95); GLOBULIN (CALCULATION) 3.8 g/dL; TOTAL PROTEIN 6.2 g/dL (6.4-8.2)
[2021-08-10] MEDS ORDERED: ARICEPT 5MG TABL5 MG PO (06:02)
[2021-08-10] MEDS ORDERED: CYMBALTA 30MG C30 MG PO (06:04)
[2021-08-10] MEDS ORDERED: COREG 3.125M3.125 MG PO (06:04)
[2021-08-10] MEDS ORDERED: ENTRESTO 24 MG1 EACH PO (06:05)
[2021-08-10] MEDS ORDERED: IMODIUM A-D2 MG PO (06:07)
[2021-08-10] MEDS ORDERED: KEPPRA XR500 MG PO (06:10)
[2021-08-10] MEDS ORDERED: LASIX40 MG PO (06:11)
[2021-08-10] MEDS ORDERED: MAALOX MAXIMUM355 ML PO (06:12)
[2021-08-10] MEDS ORDERED: REMERON15 MG PO (06:13)
[2021-08-10] MEDS ORDERED: MELATONIN5 M2 PO (06:13)
[2021-08-10] MEDS ORDERED: OXY-IR 5MG5 MG PO (06:15)
[2021-08-10] MEDS ORDERED: SALONPAS 3.1%-1 EACH TD (06:18)
[2021-08-11 03:39] LABS: INR 1.31 (0.9-1.2); PROTHROMBIN TIME 15.6 SECONDS (11.8-13.4)
[2021-08-11 03:45] LABS: IRON % SATURATION 24.6 %SAT (20-50)
[2021-08-11 04:07] LABS: ALBUMIN 2.2 g/dL (3.4-5.0); BILIRUBIN - TOTAL 0.8 mg/dL (0.2-1.0); CREATININE 0.73 mg/dL (0.51-0.95); FOLIC ACID (SERUM) 17.2 ng/mL (8.6-58.9); GLOBULIN (CALCULATION) 3.6 g/dL; TOTAL PROTEIN 5.8 g/dL (6.4-8.2)
[2021-08-12 05:08] LABS: BASOPHIL 0.4 % (0-2); EOSINOPHIL 4.1 % (0-7); HCT 23.8 % (37.0-47.0); HGB 7.6 g/dl (12.5-16.0); MCHC 31.9 g/dL (32.0-36.0); MCV 97.1 fL (78.0-100.0); MONOCYTE 11.6 % (0-12); MPV 9.8 fL (6.0-9.5); NEUTROPHIL 30.7 % (41-80); NRBC 0; PLT 187 K/uL (150-400); RBC 2.45 M/uL (4.20-5.40); RDW 13.2 % (11.5-14.0); WBC 5.1 K/uL (4.0-10.5)
[2021-08-12 05:24] LABS: ALBUMIN 2.1 g/dL (3.4-5.0); BILIRUBIN - TOTAL 0.3 mg/dL (0.2-1.0); CREATININE 0.46 mg/dL (0.51-0.95); GLOBULIN (CALCULATION) 3.9 g/dL; MAGNESIUM 1.1 mg/dL (1.8-2.4); POTASSIUM 3.3 mmol/L (3.5-5.1)
[2021-08-12] MEDS ORDERED: MEROPENEM500 MG IV (11:57)
== END 2021-08-12 14:05 ==
LOC: FER 18:09 → FMS 20:26 → FER 20:26 → FMS 23:57
PROVIDERS: Nurse Practitioner; Nurse Practitioner Family; ADMIT Allergy & Immunology Allergy
DX: N39.0 Urinary tract infection, site not specified (principal); N17.9 Acute kidney failure, unspecified; G93.41 Metabolic encephalopathy; E11.9 Type 2 diabetes mellitus without complications; K21.9 Gastro-esophageal reflux disease without esophagitis; I10 Essential (primary) hypertension; J44.9 Chronic obstructive pulmonary disease, unspecified; G89.29 Other chronic pain; M54.9 Dorsalgia, unspecified; B96.89 Other specified bacterial agents as the cause of diseases classified elsewhere; D53.9 Nutritional anemia, unspecified; Z79.2 Long term (current) use of antibiotics; Z79.899 Other long term (current) drug therapy; Z88.5 Allergy status to narcotic agent; Z88.8 Allergy status to other drugs, medicaments and biological substances; Z88.6 Allergy status to analgesic agent; Z20.822 Contact with and (suspected) exposure to COVID-19
CPT/HCPCS: 36415; 80048; 80053; 80299; 81001; 82607; 82728; 82746; 82962; 83540; 83550; 83605; 83690; 83735; 85025; 85610; 86850; 86900; 86901; 87076; 87088; 87186; 93005; 97163; 97166; 97530-GP; 97535; G0378; J0696; J7030; J7070; U0002

== ENCOUNTER 2021-10-03 05:26 | Emergency (ER) | payer MEDICARE, OTHER ==
[~2021-10-03 05:26] MED LIST changes: +ARICEPT 5MG TABL5 MG PO; +CYMBALTA 30MG C30 MG PO; +ENTRESTO 24 MG1 EACH PO; +IMODIUM A-D2 MG PO; +KEPPRA XR500 MG PO; +LASIX40 MG PO; +MAALOX MAXIMUM355 ML PO; +MELATONIN5 M2 PO; +MEROPENEM500 MG IV; +REMERON15 MG PO; +SALONPAS 3.1%-1 EACH TD
== END 2021-10-03 08:32 | disposition expired ==
LOC: FER 05:26
DX: I69.354 Hemiplegia and hemiparesis following cerebral infarction affecting left non-dominant side; E11.9 Type 2 diabetes mellitus without complications; I10 Essential (primary) hypertension; Z88.1 Allergy status to other antibiotic agents; Z88.5 Allergy status to narcotic agent; Z88.6 Allergy status to analgesic agent; Z88.3 Allergy status to other anti-infective agents
CPT/HCPCS: J0171